=== PATIENT | female | born 1965 | race Caucasian/White ===

== ENCOUNTER 2022-01-16 08:11 | Outpatient (CLI) | payer BC | END 2022-01-16 08:12 | disposition home or self-care (01) | LOC: CSHLAB 08:11 | PROVIDERS: ATTEND Internal Medicine Endocrinology, Diabetes & Metabolism | DX: Z20.822 Contact with and (suspected) exposure to COVID-19 (principal) | CPT/HCPCS: U0003; U0005 ==

== ENCOUNTER 2022-01-21 07:54 | Outpatient (CLI) | payer BC | END 2022-01-21 07:55 | disposition home or self-care (01) | LOC: CSHRAD 07:54 | PROVIDERS: ATTEND Surgery | DX: R13.10 Dysphagia, unspecified (principal); Z98.890 Other specified postprocedural states; K21.9 Gastro-esophageal reflux disease without esophagitis; K44.9 Diaphragmatic hernia without obstruction or gangrene; K22.2 Esophageal obstruction | CPT/HCPCS: 74220 ==

== ENCOUNTER 2022-06-13 08:51 | Outpatient (CLI) | payer BC | END 2022-06-13 08:52 | disposition home or self-care (01) | LOC: CSHCT 08:51 | PROVIDERS: ATTEND Surgery | DX: K43.2 Incisional hernia without obstruction or gangrene (principal); Z98.84 Bariatric surgery status; Z98.890 Other specified postprocedural states | CPT/HCPCS: 74177 ==

== ENCOUNTER 2022-12-17 14:51 | Outpatient (CLI) | payer BC | END 2022-12-17 14:52 | disposition home or self-care (01) | LOC: CSHMAMMO 14:51 | PROVIDERS: ATTEND Student in an Organized Health Care Education/Training Program | DX: M85.80 Other specified disorders of bone density and structure, unspecified site (principal); N95.9 Unspecified menopausal and perimenopausal disorder | CPT/HCPCS: 77080 ==

== ENCOUNTER 2023-06-26 06:57 | Outpatient (CLI) | payer BC ==
[2023-06-26] MEDS ORDERED: Iopamidol 300 61% 100 ML VIAL FS ONE (12:35)
== END 2023-06-26 06:58 | disposition home or self-care (01) ==
LOC: CSHCT 06:57
PROVIDERS: ATTEND Family Medicine
DX: E16.2 Hypoglycemia, unspecified (principal); Z98.890 Other specified postprocedural states
CPT/HCPCS: 74170; Q9967

== ENCOUNTER 2023-08-13 07:39 | Outpatient (CLI) | payer BC | END 2023-08-13 07:40 | disposition home or self-care (01) | LOC: CSHRAD 07:39 | PROVIDERS: ATTEND Surgery | DX: K31.1 Adult hypertrophic pyloric stenosis (principal) | CPT/HCPCS: 74220 ==